=== PATIENT | female | born 1935 | race Caucasian/White ===

== ENCOUNTER 2019-07-30 09:41 | Emergency (ER) | payer MEDICARE, MEDICAID ==
[2019-07-30] MEDS ORDERED: Nitrofurantoin Monohydrate/Macrocrystalline 100 MG Cap PO ONE (10:38)
[2019-07-30] MEDS ORDERED: Ciprofloxacin 500 MG Tab PO ONE (10:41)
--- NOTE | 2019-07-30 10:47 | EDM.PDOC ---
Scribed by Toya Newsome 07/30/19 1024 Gildardo Bynum MD ED HPI GENERAL MEDICAL PROBLEM - General Chief Complaint: Genitourinary Problem Stated Complaint: BLADDER INFECTION Time Seen by Provider: 07/30/19 10:15 Source of Information: Reports: Patient, RN, RN Notes Reviewed History Limitations: Reports: No Limitations - History of Present Illness INITIAL COMMENTS - FREE TEXT/NARRATIVE: Patient presents to ER with hematuria and dysuria. She started yesterday with burning followed by onset of hematuria, urgency 5/10. No fever, chills, flank pain, nausea or vomiting. Onset: Gradual Onset Date: 07/29/19 Duration: Getting Worse Location: Reports: Other (Urinary) Quality: Reports: Burning Severity: Moderate Improves with: Reports: None Worsens with: Reports: None Associated Symptoms: Reports: No Other Symptoms - Related Data Allergies Allergy/AdvReac Type Severity Reaction Status Date / Time Penicillins Allergy Unknown Cannot Verified 07/30/19 10:24 Remember azithromycin Allergy Cannot Verified 03/12/16 09:05 Remember doxycycline Allergy Cannot Verified 03/12/16 09:05 Remember levofloxacin [From Levaquin] Allergy Abdominal Verified 03/12/16 09:05 Pain omeprazole Allergy Cannot Verified 03/12/16 09:05 Remember pravastatin Allergy Cannot Verified 03/12/16 09:05 Remember rabeprazole Allergy Cannot Verified 03/12/16 09:05 Remember simvastatin Allergy Cannot Verified 03/12/16 09:05 Remember sulfamethoxazole Allergy Cannot Verified 03/12/16 09:05 [From Bactrim] Remember trimethoprim [From Bactrim] Allergy Cannot Verified 03/12/16 09:05 Remember Home Meds: Home Meds Docusate Sodium [Colace] 100 - 200 mg PO ASDIRECTED 02/05/16 [History] Estrogens, Conjugated [Premarin] 0.5 tab PO DAILY 02/05/16 [History] Hydrochlorothiazide 25 mg PO DAILY 02/05/16 [History] Levothyroxine [Synthroid] 50 mcg PO ACBREAKFAST 02/05/16 [History] Lisinopril [Zestril] 40 mg PO DAILY 02/05/16 [History] Multivitamin [Multi-Vitamin Daily] 1 tab PO DAILY 02/05/16 [History] Potassium Chloride [Klor-Con 10] 30 meq PO DAILY 02/05/16 [History] Rosuvastatin Calcium [Crestor] 5 mg PO DAILY 02/05/16 [History] Vitamin E Mixed [Vitamin E] 400 unit PO DAILY 02/05/16 [History] Acetaminophen [Acetaminophen ER] 650 mg PO Q8HR PRN 06/13/19 [History] Isosorbide Mononitrate [Imdur] 30 mg PO DAILY 06/13/19 [History] Magnesium Chloride [Mag-64] 64 mg PO DAILY 06/13/19 [History] Magnesium Hydroxide [Milk of Magnesia] 5 ml PO ASDIRECTED PRN 06/13/19 [History] Metoprolol Succinate 50 mg PO BID 06/13/19 [History] Potassium Chloride 20 meq PO BEDTIME 06/13/19 [History] amLODIPine [Norvasc] 5 mg PO DAILY 06/13/19 [History] Past Medical History HEENT History: Reports: None Cardiovascular History: Reports: High Cholesterol, Hypertension, Other (See Below) Other Cardiovascular History: Dyslipidemia Respiratory History: Reports: None Gastrointestinal History: Reports: Chronic Constipation Genitourinary History: Reports: Other (See Below) (chronic kidney disease. UTIs. ) QC MANAGER History: Reports: None Musculoskeletal History: Reports: Arthritis, Back Pain, Chronic, Neck Pain, Chronic, Osteoarthritis Neurological History: Reports: None Psychiatric History: Reports: Anxiety, Depression Endocrine/Metabolic History: Reports: Hypoparathyroidism, Other (See Below) Other Endocrine/Metabolic History: Impaired fasting blood sugar. Hypomagnesia Hematologic History: Reports: Anemia Immunologic History: Reports: None Oncologic (Cancer) History: Reports: Colon Other Oncologic History: Tubular adenoma (colonic) Dermatologic History: Reports: None - Infectious Disease History Infectious Disease History: Reports: Chicken Pox, Measles - Past Surgical History Female Surgical History: Reports: Hysterectomy (total abdominal with bilateral salpingo-oophorectomy.) Oncologic Surgical History: Reports: Biopsy of Breast Social & Family History - Family History Family Medical History: Noncontributory - Living Situation & Occupation Occupation: Retired ED ROS GENERAL - Review of Systems Review Of Systems: ROS reveals no pertinent complaints other than HPI. ED EXAM, GENERAL - Physical Exam Exam: See Below Exam Limited By: No Limitations General Appearance: Alert, WD/WN, No Apparent Distress Throat/Mouth: Normal Voice, No Airway Compromise Head: Atraumatic, Normocephalic Respiratory/Chest: No Respiratory Distress, Lungs Clear Cardiovascular: Regular Rate, Rhythm GI/Abdominal: Normal Bowel Sounds, Soft, No Distention, Tender (mild suprapubic tenderness). No: Guarding, Rigid, Rebound Back Exam: Normal Inspection. No: CVA Tenderness (L), CVA Tenderness (R) Neurological: Alert, Oriented, No Motor/Sensory Deficits Psychiatric: Normal Mood Skin Exam: Warm, Dry, Intact, Normal Color, No Rash Course - Vital Signs Last Recorded V/S: Last Vital Signs Temp 97.4 F 07/30/19 09:47 Pulse 61 07/30/19 09:47 Resp 18 07/30/19 09:47 BP 153/61 H 07/30/19 09:47 Pulse Ox 100 07/30/19 09:47 - Orders/Labs/Meds Orders: Active Orders 24 hr Category Date Time Status CULTURE URINE [RM] Stat Lab 07/30/19 10:09 Received Labs: Laboratory Tests 07/30/19 Range/Units 10:09 Urine Color Red (YELLOW) Urine Appearance Turbid (CLEAR) Urine pH 5.5 (5.0-9.0) Ur Specific Banks 1.020 (1.005-1.030) Urine Protein 100 H (NEGATIVE) Urine Glucose (UA) Negative (NEGATIVE) Urine Ketones Trace H (NEGATIVE) Urine Occult Blood Large H (NEGATIVE) Urine Nitrite Negative (NEGATIVE) Urine Bilirubin Moderate H (NEGATIVE) Urine Urobilinogen 1.0 (0.2-1.0) mg/dL Ur Leukocyte Esterase Large H (NEGATIVE) Urine RBC Packed H /HPF Urine WBC Packed H (0-5/HPF) /HPF Ur Epithelial Cells Moderate H (NOT SEEN) /HPF Amorphous Sediment Moderate H (NOT SEEN) /HPF Urine Bacteria Moderate H (0-FEW/HPF) /HPF Urine Mucus Moderate H (NOT SEEN) /LPF Meds: Medications Discontinued Medications Generic Name Dose Route Start Last Admin Trade Name Freq PRN Reason Stop Dose Admin Ciprofloxacin 500 mg 07/30/19 10:41 Ciprofloxacin Hcl PO 07/30/19 10:42 ONETIME ONE Nitrofurantoin Macrocrystals 100 mg 07/30/19 10:38 Macrobid PO 07/30/19 10:39 ONETIME ONE Departure - Departure Time of Disposition: 10:41 Disposition: Home, Self-Care 01 Condition: Good Clinical Impression: UTI (urinary tract infection) Qualifiers: Urinary tract infection type: acute cystitis Hematuria presence: with hematuria Qualified Code(s): N30.01 - Acute cystitis with hematuria - Discharge Information *PRESCRIPTION DRUG MONITORING PROGRAM REVIEWED*: Not Applicable *COPY OF PRESCRIPTION DRUG MONITORING REPORT IN PATIENT FELICIA: Not Applicable Instructions: Urinary Tract Infection, Adult Forms: ED Department Discharge Additional Instructions: Rx: Cipro 500mg Follow up in clinic in 7 to 10 days for urine recheck. - My Orders Last 24 Hours: My Active Orders 07/30/19 10:09 CULTURE URINE [RM] Stat - Assessment/Plan Last 24 Hours: My Active Orders 07/30/19 10:09 CULTURE URINE [RM] Stat I have read and agree with the documentation that has been completed regarding this visit. By signing this record, I attest that the documentation was completed in my physical presence and is an accurate record of the encounter.
[2019-07-30 10:55] VITALS: BP 130/58
== END 2019-07-30 11:00 | disposition home or self-care (01) ==
LOC: DL.ED 09:41
DX: N30.01 Acute cystitis with hematuria (principal); I10 Essential (primary) hypertension; E78.00 Pure hypercholesterolemia, unspecified; E78.5 Hyperlipidemia, unspecified; F41.9 Anxiety disorder, unspecified; F32.9 Major depressive disorder, single episode, unspecified; E20.9 Hypoparathyroidism, unspecified; Z79.899 Other long term (current) drug therapy; Z88.8 Allergy status to other drugs, medicaments and biological substances; Z88.1 Allergy status to other antibiotic agents; Z88.2 Allergy status to sulfonamides; Z88.0 Allergy status to penicillin
CPT/HCPCS: 81001; 87086; 87088; 87186; 99283; A9270

== ENCOUNTER 2022-05-24 01:19 | Emergency (ER) | payer MEDICARE, MEDICAID ==
[2022-05-24 01:56] VITALS: BP 195/85; PULSE 68
== END 2022-05-24 02:56 | disposition home or self-care (01) ==
LOC: DL.ED 01:19
DX: J30.2 Other seasonal allergic rhinitis (principal); E78.00 Pure hypercholesterolemia, unspecified; I10 Essential (primary) hypertension; Z88.0 Allergy status to penicillin; Z88.1 Allergy status to other antibiotic agents; Z88.5 Allergy status to narcotic agent; Z79.899 Other long term (current) drug therapy
CPT/HCPCS: 99283